=== PATIENT | male | born 1960 | race Caucasian/White ===

== ENCOUNTER 2016-10-27 09:35 | Emergency (ER) | payer OTHER ==
[~2016-10-27] VITALS: Ht 185.4 cm; Wt 137.3 kg
[2016-10-27 09:41] VITALS: BP 145/96; PULSE 67; RESP 20; O2SAT 98
--- NOTE | 2016-10-27 10:22 | ED.REPORT ---
HPI-Back Pain 40 and Over Date of Service Oct 27, 2016 ED Provider: Brian Watters MD 56 year old male with diabetes who is an everyday smoker presents to the ER complaining of 6 days of upper back pain. Pain is constant, waxing and waning, and radiates into his right arm; it "feels like bands at the shoulder and elbow joint". He expresses concern for a pinched nerve, or slipped disc. Associated symptom of numbness of the 2nd and 3rd fingers on the right hand. He was seen by Dr. Oropeza, PCP, five days ago. At that time he was told that he was having muscle spasms of his upper back/shoulder muscles and received a shot for symptoms which provided temporary relief. Currently he is on gabapentin, and ASA. Patient lives in [place], [place] but is in town today to follow-up with his Respiratory Director for a chemical stress test and came into the ER for back symptoms after discovering that his appointment is scheduled for later in the day than he expected. Nursing Notes Stated Complaint: BACK PAIN Chief Complaint: Back Pain or Injury Nursing Notes Reviewed: Yes Allergies: Coded Allergies: No Known Allergies (Unverified , 10/27/16) Scheduled PRN Cyclobenzaprine (Cyclobenzaprine) 10 Mg Tablet 10 MG PO TID PRN PRN Spasm General Time Seen by MD: 10:21 Chief Complaint Back pain Hx Obtained From: Patient Arrived By: Walk-in Sudden in Onset?: No Onset Occurred: 6 days ago Symptom Duration: Since onset Caused by: Spontaneous/no mechanism Location: : Spinal thoracic area Quality: Painful Radiation: : Arm right Severity: Current: Moderate Severity: Maximum: Severe Pertinent Negative: Pt denies other symptoms Recent Healthcare: Recent doctor visit Similar Sx Previous: Yes Past Medical History Past Medical History Reports: Diabetes mellitus, Hypertension, Denies: COPD, Cancer, Congestive heart failure, Coronary artery disease, Stroke Denies: Atrial fibrillation (s) Family History Father GA x7 at age 49 Smoking History Current Every Day Smoker Ambulatory Status Independent Review of Systems Constitutional: Denies: Chills, Fever Cardiovascular: Denies: Chest pain GI: Denies: Vomiting Musculoskeletal: Reports: Back pain, Extremity pain (Right Arm), Neck pain, Denies: Joint pain, Lumbar pain Neurologic: Reports: Numbness (Right Fingers 2 and 3) Complete sys rev & neg: except as marked. Physical Exam Initial Vital Signs Vital Signs (First) Date Time Temp Pulse Resp B/P Pulse Ox O2 Delivery O2 Flow Rate FiO2 10/27/16 09:41 35.0 67 20 145/96 98 Room Air Initial VS: Reviewed Head / Eyes: Atraumatic, Normocephalic Neck: Supple, Non-tender, Full range of motion Extremities: Vascular intact, Neuro intact, No swelling, No tenderness Skin: Warm, Dry, No cyanosis General/Constitutional: Awake, Alert, Well developed, Well nourished Appearance / Presentation: Positive: Obese Back: Atraumatic, Inspection NL, Full range of motion Flank / Spine / Paraspinal: Positive: Thorac paraspinal tend... (Point tenderness about T2-T3 on the Right) Neurologic: Oriented X3, Speech NL, No motor deficits, No sensory deficits, Reflexes equal bilat Re-Eval/Medical Decision Med Decision/Clinical Course Apparently this gentleman has an abnormal stress test performed at [facility] for which she has a follow-up appointment and consultation with cardiology this afternoon. The pain in his arm on the right seems radicular to me that he has distinct reproducible paraspinous muscle pain in the right upper thoracic area. He has no motor weakness in the right upper extremity. He has every risk factor for early coronary disease and is also obese. I think the likelihood of ischemic coronary artery disease is extremely high this gentleman but I do not believe the pain syndrome he is currently experiencing is a sequela of that condition. Source of Hx: Old records Re-Evaluation/Progress : Time of Eval: 10:35 Re-Evaluation/Progress Note: Discussed physical examination results and plan to discharge. Patient is amenable to the plan. Return precautions given. All other questions addressed. Counseled Regarding: Diagnosis, Need for follow-up, When/why to return to ED Discharge & Departure Impression: Primary Impression: Pain in right paraspinal region Additional Impression: Radiculopathy of thoracic region Disposition: Home Discharge Condition All VS Reviewed: Yes Condition: Stable Additional Instructions: I believe that your symptoms are due to muscle spasm and possibly a pinched nerve as you suspect. Take the prescribed cyclobenzaprine as directed. Stay on gabapentin. Follow-up with Dr. Oropeza as planned. Return to the ER if you develop chest pain, shortness of breath, sweating, nausea, or any other worsening or concerning symptoms. Ask the tobacco weigher if it is okay for you to use ibuprofen in this setting. Referrals: Loki Oropeza MD (PCP) Scribe Attestation Portions of this note were transcribed by Marlin Boone. I, Dr. Watters, personally performed the history, physical exam and medical decision-making; I reviewed and confirmed the accuracy of the information in the transcribed note. Signed by: Silvia Cortez, 10/27/2016 and 10:40 copies to: Loki Oropeza MD, Kirk H MD Oct 27, 2016 10:21 MARLIN BOONE Oct 27, 2016 10:35
[2016-10-27] MEDS ORDERED: CYCL10TA9 PO (10:37)
[2016-10-27 10:57] VITALS: BP 149/87; PULSE 63; RESP 20; O2SAT 97
[2017-01-20] MEDS ORDERED: METF1000 PO (17:16)
[2017-01-20] MEDS ORDERED: INSU100V7 SUBQ (17:16)
[2017-01-20] MEDS ORDERED: SIMV20TA4 PO (17:16)
[2017-01-20] MEDS ORDERED: DOXY100C2 PO (17:16)
[2017-01-20] MEDS ORDERED: LISI-567 PO (17:16)
[2017-01-20] MEDS ORDERED: GABA-500 PO (17:16)
[2017-01-20] MEDS ORDERED: HYDR-4003 PO (17:16)
[2017-01-20] MEDS ORDERED: GLIP10TA10 PO (17:16)
[2017-01-20] MEDS ORDERED: CLIN30GE2 TP (17:16)
[2017-01-20] MEDS ORDERED: PRAV80TA2 PO (17:16)
[2017-01-20] MEDS ORDERED: IBUP800T28 PO (17:16)
[2017-01-20] MEDS ORDERED: ASPI-973 PO (17:16)
== END 2016-10-27 10:58 | disposition home or self-care (01) ==
LOC: SED 09:35
DX: M54.6 Pain in thoracic spine (principal); M54.14 Radiculopathy, thoracic region; R20.0 Anesthesia of skin; I10 Essential (primary) hypertension; E11.9 Type 2 diabetes mellitus without complications; F17.200 Nicotine dependence, unspecified, uncomplicated

== ENCOUNTER 2017-01-21 00:51 | Day surgery (SDC) | payer OTHER ==
[~2017-01-21] VITALS: Ht 185.4 cm; Wt 161.2 kg
[2017-01-21] VITALS (12 sets, daily range): BP systolic 108–137; BP diastolic 58–87; PULSE 60–68; RESP 16–24; O2SAT 94–96
[~2017-01-21 00:51] MED LIST: ASPI-973 PO; CLIN30GE2 TP; DOXY100C2 PO; GABA-500 PO; GLIP10TA10 PO; HYDR-4003 PO; IBUP800T28 PO; INSU100V7 SUBQ; LISI-567 PO; METF1000 PO; PRAV80TA2 PO; SIMV20TA4 PO
[2017-01-21 12:25] LABS: BASOPHILS % (AUTO) 0.2 % (0-3); EOSINOPHILS % (AUTO) 2.2 % (0-5); MONOCYTES % (AUTO) 5.7 % (4-12); Mean Corpuscular Volume 89.9 fL (81-100); NEUTROPHILS % (AUTO) 72.9 % (40-74); Platelet Count 227 bil/L (150-400)
[2017-01-21] MEDS ORDERED: GABA-504 PO (12:35)
[2017-01-21] MEDS ORDERED: Heparin 10,000 Unit/1,000 mL NS Premix IV ONE ×2 (13:31→15:10)
[2017-01-21] MEDS ORDERED: Heparin 1,000 Units/500 mL NS Premix IV ONE (13:31)
--- NOTE | 2017-01-21 13:35 | NUR ---
Admitted today for a heart cath by Dr Jacobo for a + MIBI study and changes in his EKG "per patient". NSR upon admit and chest pain free. Pt states, he does not have any chest pain. Pt is here today with his . Plan is to use a radial approach.
[2017-01-21] MEDS ORDERED: Verapamil 2.5 mg/mL 2 mL Inj ONE (13:56)
[2017-01-21] MEDS ORDERED: Nitroglycerin 50,000 mcg/250 mL D5W Premix IV ONE (13:56)
[2017-01-21] MEDS ORDERED: Heparin 1,000 Unit/mL 10 mL Inj ONE (14:20)
[2017-01-21] MEDS ORDERED: fentaNYL-PF 50 mCg/mL 2 mL Inj ONE ×2 (14:30→15:12)
--- NOTE | 2017-01-21 16:30 | NUR ---
Returned to [facility] following an attempted stent placement into his LAD. Dr Jacobo started the case and Dr Baumann was unable to get the stent through the stenosis, was able to angioplasty instead. Plan is for patient to return to for an arthrectomy at a later date. Patient and understand plan of care. Office will arrange and contact patient later on at home, or prior to his D/C tomorrow. NSR with no ectopy. TR band with 133 cc's of air in cuff for 2 hours.
--- NOTE | 2017-01-21 16:34 | DI95 ---
[address] [address] INTERVENTIONAL CARDIAC CATHETERIZATION PATIENT: GELA WIGGINS : 1960 MR#: [id number] ADMIT: 01/21/2017 JOB ID: [id number] DATE: 01/21/2017 PROCEDURE: Attempted revascularization of chronically occluded mid left anterior descending. INDICATION: Abnormal stress test. PROCEDURAL DETAILS: The reader and the coders are referred to the procedure log for complete details. Briefly, this was done via right radial approach. A 6/7-Cypriot slender sheath was placed in the right radial artery. A 7-Cypriot Cara left 3.5 guide was used. The patient has a very adverse takeoff of his brachiocephalic and cannulating the left main was difficult. The guide position was always a bit tenuous. INTERVENTIONAL REPORT: We were able to cross the functional total occlusion in the LAD with a Run-through wire. This is a very short segment occlusion and it is calcified. We then tried to balloon it and the balloon would not cross the lesion. We then used a guide liner and took the smallest diameter balloon of 1.2 mm. This would not cross the lesion either even with guide liner support. We did balloon inflations with the distal part of the balloon and the lesion in the hope that it would modify the lesion enough to allow a fresh balloon to cross into the distal LAD. However, that was not to be at this point. The procedure was terminated. The patient will be brought back at a subsequent date. He will be dealt with from a femoral approach and we will probably need to rotablate this artery. I am a bit concerned because the ongoing LAD appears to be fairly small. I would probably use no more than a 1.25 bur. This LAD also involves two significant sized diagonals and that is my additional concern. I will be discussing the patient's treatment options. Given his obesity, I do not feel he is an ideal candidate for a single-vessel bypass either, but I will discuss all this with the patient.
--- NOTE | 2017-01-21 18:42 | NUR ---
Pt transferred to PCC room 2024. Rt radial site CDI with no bleeding noted, TR band removed successfully. Pt's VSS, report and pt handoff given to Francois SHERIDAN.
--- NOTE | 2017-01-21 19:42 | PCM.CVCATH ---
Cardiac Cath Report Date of Service Jan 21, 2017 Primary Indication Abnormal myocardial perfusion study showing anteroseptal ischemia. Procedure 1. Left heart catheterization 2. Selective coronary angiogram Vascular Access Right radial artery Procedure Details The patient was brought to the cardiac catheterization lab in the fasting state. Patient was laid supine on the cardiac catheterization table and the right forearm was prepped and draped in the usual sterile fashion. One percent Xylocaine was infiltrated over the right radial artery. Vascular access was then achieved. Guide wire was used to advance the catheter through the sheath and up into aortic sinuses. After coronary angiography was completed, guide wire was advanced through the catheter ahead of the tip of the catheter and the guide wire along with the catheter were pulled together out of the sheath. Total fluoroscopy time: 23.8 minutes Total fluoroscopy dose: 4685 mGy Estimated blood loss: 20 mL Total contrast: 260 mL Findings 1. Hemodynamics: The left ventricular systolic pressure was estimated at 100 mmHg and the left ventricular end-diastolic pressure was estimated at 21 mmHg. There is no significant gradient during pullback. The aortic systemic pressure was 90/62 mmHg. 2. Selective coronary angiography: A. Left main: There artery has no evidence of significant disease. It bifurcates into the left anterior descending and left circumflex arteries. B. Left anterior descending artery: The proximal portion there is a 20% stenosis. Just beyond this there is a medium-sized diagonal artery that has a 80-90% stenosis at the ostium. In the midportion there is a 90% stenosis with KAT 2 flow distal to the stenosis. Coming off in this same area of the high- grade stenosis, there are 2 major diagonal arteries with KAT 3 flow. C. Left circumflex artery: There is mild disease in the proximal portion but otherwise no evidence of significant stenosis. D. Right coronary artery: Only one view was obtained due to difficulty with engagement but otherwise there is no evidence of significant disease throughout the right coronary artery. This is the dominant vessel. Summary 1. High-grade stenosis of the mid LAD involving 2 other major diagonal arteries. 2. Mild but diffuse disease throughout the right coronary artery. 3. Mild to moderate stenosis in the proximal left circumflex artery. Recommendations Case was discussed with Dr. Lassiter. An intent was made to perform PCI via the radial artery. Unfortunately due to calcification of the mid LAD, PCI was unsuccessful. The patient will be admitted for observation and discharged tomorrow morning. We will try to schedule him sometime over the next week or 2 for PCI of the mid LAD with rotablade. Please see Dr. Lassiter's PTCA procedural note for more detail. Darrius Jacobo MD Jan 21, 2017 19:42
[2017-01-22] MEDS ORDERED: ROB500 PO (01:01)
[2017-01-22] MEDS ORDERED: GABA-502 PO (01:01)
[2017-01-22] MEDS ORDERED: GABA-500 PO (01:01)
[2017-01-22 03:59] VITALS: BP 115/73; PULSE 67; RESP 22; O2SAT 93
[2017-01-22 05:37] VITALS: PULSE 64
--- NOTE | 2017-01-22 06:45 | NUR ---
Cardiac Pt denies pain. VSS. Right radial site without apparent complications. Tolerating activities well. Med-Rec updated. No overt complications noted.
[2017-01-22] MEDS ORDERED: CLINDAMYCIN 1% TOPICAL SCH (08:30)
[2017-01-22 10:07] VITALS: BP 127/82; PULSE 64; RESP 16; O2SAT 95
--- NOTE | 2017-01-22 11:14 | PCM.DIMED ---
Discharge Instructions Date of Service Jan 22, 2017 Dates of Hospitalization 01/21/2017 Discharge Diagnosis Discharge Diagnosis CAD, HTN, DM type 2 Medication Instructions Additional med instructions Please take all medications as prescribed. Please restart Metformin on 01/23/2017 Diet Discharge Diet: Low fat, Low Sodium, Heart Healthy, Diabetic Activity Discharge Activity: Other (Pelase see below) Call your provider Call your provider for: Shortness of breath, Bleeding, Chest pain Patient Instructions Patient Instructions No car driving for couple of days; you can have shower starting today; please do not soak your right wrist in hot water for one week; no heavy lifting, no more than 7-10 lb for one week, otherwise please be physically active as tolerated; please avoid strenuous activity Follow-up plan Check BMP in one week Ivan Canas PA-C Jan 22, 2017 11:14
--- NOTE | 2017-01-22 11:42 | PCM.DC.MED ---
Discharge Summary Date of Service Jan 22, 2017 Dates of Hospitalization Date of Hospital Admission 01/21/2017 Date of Discharge: Jan 22, 2017 Providers: Admitting Physician: Primary Care Physician: Loki Oropeza MD Attending Physician: Darrius Jacobo MD Diagnosis at Time of Discharge Diagnosis at Time of Discharge CAD, HTN, DM type 2 Brief History This is a very pleasant 56 y/o gentleman who had an abnormal myocardial perfusion study showing anteroseptal ischemia and had elective coronary angiography done on 01/21/2017. Hospital Course Coronary angiography showed that the patient had high-grade stenosis of the mid LAD involving 2 other major diagonal arteries; also had mild but diffuse disease throughout the right coronary artery and mild to moderate stenosis in the proximal left circumflex artery. An intent was made to perform PCI via the radial artery. Unfortunately due to calcification of the mid LAD, PCI was unsuccessful. The decision was made to try to schedule the patient sometime over the next week or 2 for PCI of the mid LAD with rotablade. Please see Dr. Lassiter's PTCA procedural note for more detail. Currently the patient is doing well, denies having any chest discomfort or SOB/ GARCIA. His right forearm area (access site) is slightly tender with palpation, no bleeding or hematoma noted; Peripheral pulses preserved. On Telemetry: sinus rhythm with HR in 60s. Advised the patient to restart Metformin on 01/23/2017 (48hrs after the procedure ) Medications on discharge are below. Exam Vital Signs (Last) Date Time Temp Pulse Resp B/P Pulse Ox O2 Delivery O2 Flow Rate FiO2 01/22/17 10:07 36.6 64 16 127/82 95 Room Air 01/21/17 18:00 2.00 Exam General: no acute distress EENT: MMM, sclerae anicteric Neck: supple, no thyromegaly Pulmo: normal breathing sounds bilaterally, no crackles, no wheezing Cardio: RRR, normal S1&S2, no murmur appreciated, JVP is not elevated Abdomen: nontender with palpation Extremities: no LE edema Neuro: A&Ox3, no gross abnormalities Test 01/21/17 12:10 01/22/17 08:35 White Blood Count 8.1th/mm3 (3.8-10.1) Red Blood Count 5.17mil/mm3 (4.40-5.80) Hemoglobin 15.0g/dL (13.8-17.2) Hematocrit 46.5% (41.0-50.0) Mean Corpuscular Volume 89.9fL (81-100) Mean Corpuscular Hemoglobin 29.0pg (27.0-35.0) Mean Corpuscular Hemoglobin Concent 32.3% (32.0-37.0) Red Cell Distribution Width 14.6% (12.3-15.4) Platelet Count 227bil/L (150-400) Neutrophils (%) (Auto) 72.9% (40-74) Lymphocytes (%) (Auto) 18.8% (14-46) Monocytes (%) (Auto) 5.7% (4-12) Eosinophils (%) (Auto) 2.2% (0-5) Basophils (%) (Auto) 0.2% (0-3) Sodium Level 137mEq/L (134-144) Potassium Level 4.4mEq/L (3.5-5.2) Chloride Level 104mEq/L (97-108) Carbon Dioxide Level 25mmol/L (18-29) Blood Urea Nitrogen 12mg/dL (6-24) Creatinine 0.56mg/dL (0.76-1.27) Estimat Glomerular Filtration Rate 160mL/min (>59) Glucose Level 128mg/dL (60-99) Calcium Level 8.5mg/dL (8.5-10.1) Discharge Medications Discharge Medications Aspirin (Aspirin) 81 Mg Tablet 81 MG PO DAILY (Reported) Clindamycin Phosphate (Clindamycin Phosphate Gel) 30 Gm Gel..gram. 1 APPLIC TP DAILY (Reported) Doxycycline Hyclate (Doxycycline Hyclate) 100 Mg Capsule 100 MG PO BID (Reported ) Gabapentin (Gabapentin) 100 Mg Capsule 100 MG PO 0730+1530 (Reported) Gabapentin (Gabapentin) 300 Mg Capsule 300 MG PO 0730+1530+2330 (Reported) Ibuprofen (Ibuprofen) 800 Mg Tablet 800 MG PO TIDWM (Reported) Lisinopril (Lisinopril) 20 Mg Tablet 20 MG PO DAILY (Reported) Metformin (Glucophage) 1,000 Mg Tablet 1,000 MG PO BID (Reported) Simvastatin (Simvastatin) 20 Mg Tablet 20 MG PO HS (Reported) As needed Hydrocodone-Acetaminophen 5-325 mg (Hydrocodone-Acetaminophen 5-325 mg) 1 Each Tablet 1 TABLET PO Q6H PRN PRN For Pain (Reported) Methocarbamol (Methocarbamol) 500 Mg Tablet 500 MG PO TID PRN PRN For Spasm ( Reported) Miscellaneous Medications Insulin Glargine (Lantus U100 Insulin Vial) 100 Unit/Ml Vial Unknown Dose SUBQ ( Reported) Additional med instructions Please take all medications as prescribed. Please restart Metformin on 01/23/2017 Followup Plan Follow-up plan Check BMP in one week Discharge Diet: Low fat, Low Sodium, Heart Healthy, Diabetic Discharge Activity: Other (Pelase see below) Patient Instructions No car driving for couple of days; you can have shower starting today; please do not soak your right wrist in hot water for one week; no heavy lifting, no more than 7-10 lb for one week, otherwise please be physically active as tolerated; please avoid strenuous activity Ivan Canas PA-C Jan 22, 2017 11:42
--- NOTE | 2017-01-22 13:09 | NUR ---
Pt left facility on foot at 1315 by himself. Bilat saline lock IVs DC'd intact. He was given educational information regarding HH diet and radial access heart cath precautions. He is taking the bus home to [place] via the bus stop outside the hospital. He understands that the cardiology clinic will call him regarding follow up and he will return for another heart cath procedure next week. Pt given DC med list and understands which medications he took this morning and when to take next doses.
== END 2017-01-22 13:15 | disposition home or self-care (01) ==
LOC: SOUO 00:51 → PCC 18:34 → SOUO 01-22 13:15
PROVIDERS: ATTEND Internal Medicine Cardiovascular Disease
DX: I25.10 Atherosclerotic heart disease of native coronary artery without angina pectoris (principal); I25.82 Chronic total occlusion of coronary artery; I10 Essential (primary) hypertension; E78.2 Mixed hyperlipidemia; Z79.84 Long term (current) use of oral hypoglycemic drugs; Z79.82 Long term (current) use of aspirin; E11.43 Type 2 diabetes mellitus with diabetic autonomic (poly)neuropathy
CPT/HCPCS: 36415; 80048; 85025; 92920; 93005; 93458; 99152; 99153; C1725; C1729; C1769; C1887; C1894; J1200; J1644; J2060; J2250; J3010; J7030; Q9967

== ENCOUNTER 2017-02-03 01:09 | Day surgery (SDC) | payer OTHER ==
[2017-02-03] VITALS (12 sets, daily range): BP systolic 109–139; BP diastolic 51–81; PULSE 61–70; RESP 16–18; O2SAT 94–96
[~2017-02-03] VITALS: Ht 185.4 cm; Wt 161.4 kg
[~2017-02-03 01:09] MED LIST changes: +GABA-502 PO; -GLIP10TA10 PO; -PRAV80TA2 PO; +ROB500 PO
[2017-02-03 13:07] LABS: BASOPHILS % (AUTO) 0.3 % (0-3); EOSINOPHILS % (AUTO) 2.6 % (0-5); MONOCYTES % (AUTO) 7.8 % (4-12); Mean Corpuscular Hemoglobin 29.4 pg (27.0-35.0); Mean Corpuscular Volume 88.3 fL (81-100); NEUTROPHILS % (AUTO) 70.2 % (40-74); Platelet Count 220 bil/L (150-400)
[2017-02-03] MEDS ORDERED: Heparin 1,000 Units/500 mL NS Premix IV ONE (13:30)
[2017-02-03] MEDS ORDERED: Heparin 10,000 Unit/1,000 mL NS Premix IV ONE (13:31)
[2017-02-03] MEDS ORDERED: Verapamil 2.5 mg/mL 2 mL Inj ONE (13:31)
[2017-02-03] MEDS ORDERED: Nitroglycerin 50,000 mcg/250 mL D5W Premix IV ONE (13:31)
[2017-02-03] MEDS ORDERED: 0.9% Sodium Chloride 1,000 ML ONE (13:31)
[2017-02-03] MEDS ORDERED: Heparin 1,000 Unit/mL 10 mL Inj ONE ×2 (13:31→13:32)
[2017-02-03] MEDS ORDERED: Atropine 1 mg/10 mL (Code) Syringe ONE (13:32)
[2017-02-03] MEDS ORDERED: fentaNYL-PF 50 mCg/mL 2 mL Inj ONE (13:58)
--- NOTE | 2017-02-03 15:23 | DI95 ---
[address] [address] INTERVENTIONAL CARDIAC CATHETERIZATION PATIENT: GELA WIGGINS : 1960 MR#: [id number] ADMIT: 02/03/2017 JOB ID: [id number] DATE OF SERVICE: 02/03/2017 PROCEDURE: Percutaneous intervention on the LAD. INDICATION: Chest pain. HISTORICAL DETAILS: This gentleman had an attempted PCI about two weeks ago. Dr. Jacobo did a radial angiogram. I was to asked to do an intervention on his subtotally occluded mid LAD. Because of calcification and poor guide support it was unsuccessful. The patient was brought back for a tentative rotablation today. PROCEDURAL DETAILS: The reader and the coders are referred to the procedure log. Briefly, 7-Maltese system, right femoral approach. A Voda 3.5 guide was used. INTERVENTIONAL REPORT: We were able to cross the lesion with a run-through wire. We were able to deliver an over the wire 1.25 mm balloon. This time we were able to cross the lesion. Balloon dilatations were then sequentially done with 1.5 and a 2.0 balloon. This LAD trifurcates at this point. It gives off two medium-sized diagonals. It is as a result a very small-caliber vessel. There was some plaque shift into the second diagonal. Kissing balloon inflations were then done in the LAD and the second diagonal. Following that, there was good angiographic result. Given the significant size mismatch between the LAD past the lesion and proximal to the lesion and also the fact that it involved takeoff of two diagonals, each one of them is moderate caliber but bigger than the ongoing LAD itself, I decided not to stent this vessel. Final angiographic results were excellent. To summarize, successful intervention on subtotally occluded mid LAD.
[2017-02-03] MEDS ORDERED: CLOP75TA28 PO (16:14)
[2017-02-03] MEDS ORDERED: ATOR40TA69 PO (16:14)
--- NOTE | 2017-02-03 17:39 | NUR ---
Pt transferred to PCC room 2006. Pt's VSS, Rt groin site CDI with no bleeding/hematoma noted. Report and pt handoff given to Richelle SHERIDAN.
[2017-02-03] MEDS ORDERED: HYDROcodone-APAP 5-325 mg Tablet PO PRN (17:40)
[2017-02-03] MEDS ORDERED: CLINDAMYCIN TOPICAL SCH (17:41)
[2017-02-03] MEDS ORDERED: Insulin GLARgine 100 Unit/mL Syringe SUBQ SCH (21:00)
[2017-02-03] MEDS ORDERED: CLINDAMYCIN GEL 1% TOPICAL SCH (21:00)
[2017-02-03] MEDS ORDERED: Insulin GLARgine 100 Unit/mL Syringe SUBQ ONE (23:20)
[2017-02-04 04:15] VITALS: BP 125/49; PULSE 62; RESP 18; O2SAT 95
--- NOTE | 2017-02-04 05:02 | NUR ---
Activity Pt. completed bedrest post heart cath. Up ad nilay in room, groin site c/d/i. No c/o pain or tenderness; however, noted redness/rash and discomfort in pubic region from surgical prep today. Barrier cloth provided and states discomfort improved. Rested with eyes closed, and home CPAP device in place. Indicates no further needs at this time, care continues.
[2017-02-04 08:21] VITALS: BP 115/62; PULSE 64; RESP 18; O2SAT 94
[2017-02-04 12:26] VITALS: PULSE 61
[2017-02-04 13:01] VITALS: BP 145/84; PULSE 62; RESP 18; O2SAT 96
--- NOTE | 2017-02-04 13:02 | PCM.DIMED ---
Discharge Instructions Date of Service Feb 04, 2017 Dates of Hospitalization 02/03/2017 Discharge Diagnosis Discharge Diagnosis CAD, s/p balloon angioplasty of subtotally occluded mid LAD (02/03/2017), HTN, DM type 2 Medication Instructions Additional med instructions Please take all medications as prescribed. Please make sure that you take Clopidogrel (Plavix) every day for at least one one month Please stop taking Simvastatin. Instead I started you on Atorvastatin 40 mg one tablet every day. Please restart Metformin on 02/05/2017 Diet Discharge Diet: Low fat, Low Sodium, Heart Healthy, Diabetic Activity Discharge Activity: Other (Please see below) Call your provider Call your provider for: Shortness of breath, Bleeding, Chest pain Patient Instructions Patient Instructions No car driving for couple of days; you can have shower starting today; please do not soak in bath tub for one week; no heavy lifting, no more than 7-10 lb for one week, otherwise please be physically active as tolerated; please avoid strenuous activity Follow-up plan Check BMP in one week Provider: Darrius Jacobo MD Follow-up in: 3 weeks Ivan Canas PA-C Feb 04, 2017 13:02
[2017-02-04] MEDS ORDERED: CLOP75TA28 PO (13:04)
--- NOTE | 2017-02-04 13:05 | PCM.DC.MED ---
Discharge Summary Date of Service Feb 04, 2017 Dates of Hospitalization Date of Hospital Admission 02/03/2017 Date of Discharge: Feb 04, 2017 Providers: Admitting Physician: Primary Care Physician: Loki Oropzea MD Attending Physician: Gerry Lassiter MD Diagnosis at Time of Discharge Diagnosis at Time of Discharge CAD, s/p balloon angioplasty of subtotally occluded mid LAD (02/03/2017), HTN, DM type 2 Brief History This is a very pleasant 56 y/o gentleman who had an abnormal myocardial perfusion study recently showing anteroseptal ischemia and had elective coronary angiography done on 01/21/2017; Coronary angiography showed that the patient had high-grade stenosis of the mid LAD involving 2 other major diagonal arteries; also had mild but diffuse disease throughout the right coronary artery and mild to moderate stenosis in the proximal left circumflex artery. An intent was made to perform PCI via the radial artery. Unfortunately due to calcification of the mid LAD, and poor guide support PCI was unsuccessful. The decision was made to try to schedule the patient sometime later for tentative PCI of the mid LAD with rotablade. Hospital Course On 02/03/2017 the patient successful balloon angioplasty of subtotally occluded mid LAD. For more details please refer to chief pharmacist Dr. Jenkins procedure report. The patient tolerated procedure well. He ambulates freely. Denies having any chest discomfort or GARCIA, does not have symptoms of nocturnal pulmonary congestion, denies having palpitations, or dizziness/lightheadedness. His right groin area (access site) is nontender with palpation, no bleeding, no hematoma, and no bruits with auscultation. Per telemetry: sinus rhythm with HR in 60s-70s bpm with occasional PVCs. I advised the patient to restart Metformin tomorrow (02/05/2017) which will be 48 hrs after the procedure was done. Medications on discharge are below. Exam Vital Signs (Last) Date Time Temp Pulse Resp B/P Pulse Ox O2 Delivery O2 Flow Rate FiO2 02/04/17 12:26 61 02/04/17 08:21 36.6 18 115/62 94 Room Air Exam General: No active distress EENT: Mucous membranes moist, sclerae anicteric Neck: Supple, no thyromegaly Pulmo: Normal breathing sounds bilaterally, no crackles, no wheezing Cardio: RRR, no murmur appreciated, JVP is not elevated Abdomen: Nontender with palpation Vascular: No carotid bruits, peripheral pulses preserved Neuro: A&Ox3, no gross abnormalities Test 02/03/17 13:00 02/04/17 04:15 White Blood Count 7.4th/mm3 (3.8-10.1) Red Blood Count 5.14mil/mm3 (4.40-5.80) Hemoglobin 15.1g/dL (13.8-17.2) Hematocrit 45.4% (41.0-50.0) Mean Corpuscular Volume 88.3fL (81-100) Mean Corpuscular Hemoglobin 29.4pg (27.0-35.0) Mean Corpuscular Hemoglobin Concent 33.3% (32.0-37.0) Red Cell Distribution Width 14.6% (12.3-15.4) Platelet Count 220bil/L (150-400) Neutrophils (%) (Auto) 70.2% (40-74) Lymphocytes (%) (Auto) 18.8% (14-46) Monocytes (%) (Auto) 7.8% (4-12) Eosinophils (%) (Auto) 2.6% (0-5) Basophils (%) (Auto) 0.3% (0-3) Sodium Level 134mEq/L (134-144) Potassium Level 4.1mEq/L (3.5-5.2) Chloride Level 99mEq/L (97-108) Carbon Dioxide Level 24mmol/L (18-29) Blood Urea Nitrogen 13mg/dL (6-24) Creatinine 0.55mg/dL (0.76-1.27) Estimat Glomerular Filtration Rate 164mL/min (>59) Glucose Level 210mg/dL (60-99) Calcium Level 8.7mg/dL (8.5-10.1) Discharge Medications Discharge Medications Aspirin (Aspirin) 81 Mg Tablet 81 MG PO DAILY (Reported) Atorvastatin Calcium (Atorvastatin Calcium) 40 Mg Tablet 40 MG PO DAILY Prescribed by: JOESPH KAUR Clindamycin Phosphate (Clindamycin Phosphate Gel) 30 Gm Gel..gram. 1 APPLIC TP DAILY (Reported) Clopidogrel (Clopidogrel) 75 Mg Tablet 75 MG PO DAILY Prescribed by: JOESPH KAUR Doxycycline Hyclate (Doxycycline Hyclate) 100 Mg Capsule 100 MG PO BID (Reported ) Gabapentin (Gabapentin) 100 Mg Capsule 100 MG PO 0730+1530 (Reported) Gabapentin (Gabapentin) 300 Mg Capsule 300 MG PO 0730+1530+2330 (Reported) Ibuprofen (Ibuprofen) 800 Mg Tablet 800 MG PO TIDWM (Reported) Lisinopril (Lisinopril) 20 Mg Tablet 20 MG PO DAILY (Reported) Metformin (Glucophage) 1,000 Mg Tablet 1,000 MG PO BID (Reported) As needed Hydrocodone-Acetaminophen 5-325 mg (Hydrocodone-Acetaminophen 5-325 mg) 1 Each Tablet 1 TABLET PO Q6H PRN PRN For Pain (Reported) Methocarbamol (Methocarbamol) 500 Mg Tablet 500 MG PO TID PRN PRN For Spasm ( Reported) Miscellaneous Medications Insulin Glargine (Lantus U100 Insulin Vial) 100 Unit/Ml Vial 32 SUBQ (Reported) Additional med instructions Please take all medications as prescribed. Please make sure that you take Clopidogrel (Plavix) every day for at least one one month Please restart Metformin on 02/05/2017 Followup Plan Follow-up plan Check BMP in one week Discharge Diet: Low fat, Low Sodium, Heart Healthy, Diabetic Discharge Activity: Other (Please see below) Patient Instructions No car driving for couple of days; you can have shower starting today; please do not soak in bath tub for one week; no heavy lifting, no more than 7-10 lb for one week, otherwise please be physically active as tolerated; please avoid strenuous activity Provider: Darrius Jacobo MD Follow-up in: 3 weeks Ivan Canas PA-C Feb 04, 2017 13:05
[2017-02-04] MEDS ORDERED: ATOR40TA69 PO (13:24)
--- NOTE | 2017-02-04 14:23 | NUR ---
Discharge Pt left with daughter at 1400. All belongings taken with. All discharge instructions gone over and understood. IVx2 and tele removed. All questions answered. Right groin site soft and non tender.
--- NOTE | 2017-02-05 08:38 | DRSVH ---
PROCEDURE: US DUPLEX DOPPLER OF UNILATERAL ARM ARTERIES, RIGHT INDICATIONS: PAIN TECHNIQUE: Color and pulse Doppler interrogation was performed of right upper extremity arterial systems, with i mage documentation. COMPARISON: None. FINDINGS: Right upper extremity: Subclavian artery (mid): 106 cm/sec, with triphasic flow. Axillary artery: 71 cm/sec, with triphasic flow. Brachial artery (proximal): 63 cm/sec, with triphasic flow. Brachial artery (mid): 69 cm/sec, with triphasic flow. Brachial artery (distal): 62 cm/sec, with triphasic flow. Radial artery (proximal): 16 cm/sec, with monophasic flow. Radial artery (mid): Occluded. Radial artery (distal): Occluded. Ulnar artery (proximal): 87 cm/sec, with triphasic flow. Ulnar artery (mid): 50 cm/sec. with triphasic flow. Ulnar artery (distal): 51 cm/sec, with triphasic flow. Jackson-scale imaging description: Mild scattered plaque insignificant plaque seen within the mid to dis sonia radial artery. IMPRESSION: Occlusion of the mid to distal right radial artery otherwise no hemodynamically significa nt stenosis is seen. Dr. Lassiter given results by the plasterer tender at 1600 hrs. 02/03/2017. Dictated by: Nas Lee RRA Interpreted: Amanda Lilly MD on 02/05/2017 at 8:34 Transcribed by: TANNA on 02/05/2017 at 8:37 Approved by: Amanda Lilly MD, PhD on 02/05/2017 at 9:45
== END 2017-02-04 14:00 | disposition home or self-care (01) ==
LOC: SOUO 01:09 → PCC 17:35 → SOUO 02-04 14:00
PROVIDERS: ATTEND Internal Medicine Cardiovascular Disease
DX: I25.10 Atherosclerotic heart disease of native coronary artery without angina pectoris (principal); I10 Essential (primary) hypertension; E11.43 Type 2 diabetes mellitus with diabetic autonomic (poly)neuropathy; F17.210 Nicotine dependence, cigarettes, uncomplicated; F12.90 Cannabis use, unspecified, uncomplicated; E78.2 Mixed hyperlipidemia; Z79.82 Long term (current) use of aspirin; Z79.84 Long term (current) use of oral hypoglycemic drugs
CPT/HCPCS: 36415; 80048; 85025; 92920; 92921; 93005; 93931; 99152; 99153; C1725; C1760; C1769; C1887; J1644; J1815; J2250; J3010; J7030; Q9967